=== PATIENT | female | born 1945 | race Caucasian/White ===

== ENCOUNTER 2021-12-11 07:39 | Day surgery (SDC) | payer MEDICARE, SELFPAY ==
[2021-12-11] MEDS: Lidocaine Jelly 2% 20 ML Syringe (URO-JET) 1 APPLIC (08:00)
[2021-12-11 08:01] VITALS: BP 148/77; PULSE 68; RESP 16; TEMP 37; O2SAT 100
== END 2021-12-11 08:30 | disposition home or self-care (01) ==
LOC: EN 07:42 → AC 07:43
PROVIDERS: PCP Family Medicine; Referring Provider Surgery; Visit Provider Surgery
PROC: F00ZJWZ Instrumental Swallowing and Oral Function Assessment using Swallowing Equipment (ICD-10-PCS; CPT 43235; principal; 2021-12-11 07:55)
DX: K21.9 Gastro-esophageal reflux disease without esophagitis (principal)
CPT/HCPCS: 91010

== ENCOUNTER 2022-01-01 10:37 | Day surgery (SDC) | payer MEDICARE, SELFPAY ==
[2022-01-01] VITALS (7 sets, daily range): BP systolic 94–109; BP diastolic 53–62; PULSE 61–64; RESP 16; TEMP 36.9–37.1; O2SAT 94–97; BMI 24.9
[2022-01-01] MEDS: Lactated Ringers 1,000 ML 15 ML IV (11:15)
--- NOTE | 2022-01-01 12:16 | HP.PCM_ITS ---
History and Physical Date of Admission: 01/01/22 HISTORY AND PHYSICAL ? Danita Mcleod 1945 ? REFERRING PHYSICIAN: Chris Falcon,* ? CHIEF COMPLAINT: Consult (EGD) ? HPI: The patient is a 76 year old female referred for endoscopy. Danita notes no history of colon complaints. ? The patient notes the following upper complaints: Danita denies abdominal pain.. Danita notes heartburn. Danita notes dysphagia. Danita notes a history of ulcers/ peptic ulcer disease. ? Danita has undergone prior endoscopy. Patient has undergone an EGD in 2006. She was noted to have some erosive gastritis and the esophagus appeared to be normal at that time. ? The patient is being seen by me today at the request of Dr. Chris Falcon MD for my opinion and advice regarding Esophageal dysphagia Gerd without esophagitis. ? ? PAST MEDICAL HISTORY PAST MEDICAL HISTORY Diagnosis Date ? Acute bronchitis 07/16/2005 ? Acute gastritis without mention of hemorrhage ? ? Anxiety state ? ? Basal cell carcinoma ? ? Broken wrist 09/2008 ? R wrist ? Depression ? ? Esophageal reflux ? ? Osteoarthritis of knees, bilateral ? ? left worse than right, seeing ortho ? Osteopenia ? ? Dr. Rossi-endo ? Vitamin D insufficiency ? ? 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 ? PAST SURGICAL HISTORY PAST SURGICAL HISTORY Procedure Laterality Date ? ARTHRP KNE CONDYLE&PLATU MEDIAL&LAT COMPARTMENTS Left 01/2018 ? CHOLECYSTECTOMY ? ? ? Cholecystectomy ? COLONOSCOPY FLX DX W/COLLJ SPEC WHEN PFRMD ? ? ? Colonoscopy ? COLONOSCOPY FLX DX W/COLLJ SPEC WHEN PFRMD ? 01/31/2011 ? Colonoscopy- [facility] - occult blood positive stool, adhesions ? EGD TRANSORAL BIOPSY SINGLE/MULTIPLE ? 06/11/2006 ? ESOPHAGOGASTRODUODENOSCOPY TRANSORAL DIAGNOSTIC ? 01/31/2011 ? EGD - [facility] - ? HAMMERTOE REVISION, ONE TOE ? ? ? PAST SURGICAL HISTORY OF ? 08/25/2012 ? lateral meniscus repair - [facility] ? PAST SURGICAL HISTORY OF ? 10/2017 ? basal cell carcinoma removal ? TONSILLECTOMY PRIMARY/SECONDARY <AGE 12 ? ? ? Tonsillectomy ? ? ? CURRENT MEDICATIONS Current Outpatient Medications Medication Sig ? citalopram (CELEXA) 20 mg tablet Take 1 tablet by mouth once daily. ? atorvastatin (LIPITOR) 20 mg tablet Take 1 tablet by mouth daily at bedtime. For cholesterol. ? famotidine (PEPCID) 40 mg tablet Take 1 tablet by mouth daily at bedtime. ? famotidine (PEPCID) 40 mg tablet ? ? lansoprazole (PREVACID) 30 mg capsule Take 1 capsule by mouth as needed. ? clobetasol (TEMOVATE) 0.05 % ointment Use 1-2x weekly for maintenance ? Cholecalciferol, Vitamin D3, (VITAMIN D) 1,000 unit cap Take 2,000 Units by mouth twice daily. ? ? No current facility-administered medications for this visit. ? ? ALLERGIES: Seasonal Allergies ? PERSONAL HISTORY: SOCIAL HISTORY Social History ? Tobacco Use ? Smoking status: Former Smoker ? Smokeless tobacco: Never Used ? Tobacco comment: smoked 1 cig per month in college Vaping Use ? Vaping Use: Never used Substance Use Topics ? Alcohol use: Yes ? ? Alcohol/week: 7.0 standard drinks ? ? Types: 7 Glasses of Wine (5oz) per week ? ? Comment: Occasionally (wine) ? Drug use: No ? FAMILY HISTORY: FAMILY HISTORY FAMILY HISTORY Problem Relation Age of Onset ? None Mother ? ? Coronary Artery Disease Father ? ? None Brother ? ? None Brother ? ? Colon Cancer Maternal Grandmother ? ? ? REVIEW OF SYMPTOMS: The review of systems data was entered by the nurse and reviewed by me ? Nursing Notes: Chani Nieves 10/24/2021 2:43 PM Signed REVIEW OF SYSTEMS: General: The patient denies fatigue, denies weight loss, denies weight gain, denies feeling hot, and NOTES feelings of cold. Eyes: The patient denies glaucoma, denies eye injury/surgery, wears glasses or contacts. Ear/Nose/Throat: The patient denies allergies, denies hayfever, denies ear infections, and denies bloody noses. Cardiovascular: The patient denies chest pain, denies heart disease, de nies high blood pressure,denies cardiac stent, denies prior heart attack, denies irregular heart beat, denies high cholesterol, denies poor circulation, denies heart failure, other cardiac issues, denies claudication, denies cold feet, denies peripheral arterial stent. Respiratory: The patient denies tuberculosis, NOTES pneumonia, denies frequent cough, denies pulmonary embolism, denies shortness of breath, and denies coughing up blood. Gastrointestinal: The patient denies difficulty swallowing, NOTES acid reflux, denies ulcers, denies vomiting, denies jaundice/hepatitis, denies g allbladder problems, denies black or tarry stools, denies hemorrhoids, denies bleeding from rectum, denies diverticulitis, denies constipation, denies diarrhea, denies loss of stool control, and denies hernias. Kidney/Bladder: The patient denies kidney stones, denies urine infections, and denies bloody urine. Skin: The patient denies a history of skin cancer, denies bleeding/changing moles, and denies a history of skin rash. Neurologic: The patient denies a history of epilepsy/convulsions, denies headaches, denies head/spinal injuries, and denies stroke/TIA. Psychiatric: The patient denies psychiatric medications, denies depression, and denies voices, denies substance abuse. Endocrine: The patient denies thyroid disorders, denies diabetes, and denies hormonal problems. Hematologic: The patient denies a history of bruising, denies bleeding, and denies anemia, denies blood clots. Infections: The patient denies a history of measles and mumps, denies rheumatic fever, and denies sexually transmitted diseases. Musculoskeletal: The patient denies back pain/injury, denies back problems, denies sciatica, NOTES knee/foot trouble, denies arthritis, or denies gout. ? ? When was patient's last Mammogram screening? 08/2021 ? Last Colonoscopy: 2011 ? Chani Nieves ? PHYSICAL EXAMINATION: ? General: The patient is 76 year old female, well nourished, well hydrated in no acute distress. The patient is oriented to time, place, and person. ? VITALS: Blood pressure 126/69, pulse 71, temperature 36.7 ?C (98.1 ?F), height 151.1 cm (4' 11.5), weight 56.7 kg (125 lb), SpO2 98 %. Body mass index is 24.82 kg/m?. ? HEENT: Normal cephalic, ataumatic, pupils are equally round, sclera are anicteric, mucous membranes are moist, oropharynx is clear. Neck has no masses, asymmetry or lymphadenopathy. Thyroid is unremarkable. ? Respiratory: Clear to auscultation and percussion. Normal respiratory excursion and pattern. ? Cardiac: Examination is regular rate and rhythm. ? Abdominal exam: Soft, nontender, with no palpable masses. No hepatosplenomegaly. No palpable hernias. ? Rectal exam: exam deferred ? Extremities: no clubbing, cyanosis or edema. No adenopathy. ? Other: ? LABORATORY VALUES: As Noted ? RADIOLOGIC STUDIES: As Noted ? Assessment IMPRESSION: Esophageal dysphagia Gerd without esophagitis ? PLAN: I plan to perform upper endoscopy. We discussed the risks and benefits of the planned endoscopy. I have informed the patient that complications can occur including failure to complete the endoscopy and perforation. The patient had the opportunity to ask questions concerning the planned endoscopy. My staff has also explained the procedure to the patient in understandable terms and has given the patient printed material concerning the procedure. The patient freely consents to surgery. ? Diagnoses: (R13.19) Esophageal dysphagia (K21.9) GERD without esophagitis ? ? My findings have been communicated to Dr. Chris Falcon MD via shared medical record. This note will be forwarded to Dr. Chris Falcon MD. Return to Clinic: The patient is instructed to follow-up with me 1 week post operatively. ? Nestor Hathaway III, MD I have re-examined the patient. There are no clinical changes since date of exam.
--- NOTE | 2022-01-01 12:34 | OP.EGD_ITS ---
Patient Name: Danita Mcleod Procedure Date: 01/01/2022 11:28 AM Date of : 1945 Age: 76 Procedure: Upper GI endoscopy Indications: Dysphagia Providers: Nestor Hathaway MD Medicines: See the Anesthesia note for documentation of the administered medications Patient Profile: This is a 76 year old female. Refer to note in patient chart for documentation of history and physical. Complications: No immediate complications. Estimated blood loss: None. Procedure: Pre-Anesthesia Assessment: - Prior to the procedure, a History and Physical was performed, and patient medications and allergies were reviewed. The patient's tolerance of previous anesthesia was also reviewed. The risks and benefits of the procedure and the sedation options and risks were discussed with the patient. All questions were answered, and informed consent was obtained. Prior Anticoagulants: The patient has taken no previous anticoagulant or antiplatelet agents. ASA Grade Assessment: II - A patient with mild systemic disease. After reviewing the risks and benefits, the patient was deemed in satisfactory condition to undergo the procedure. After obtaining informed consent, the endoscope was passed under direct vision. Throughout the procedure, the patient's blood pressure, pulse, and oxygen saturations were monitored continuously. The gastroscope was introduced through the mouth, and advanced to the second part of duodenum. The upper GI endoscopy was accomplished without difficulty. The patient tolerated the procedure well. Scope In: 12:21:57 PM Scope Out: 12:26:32 PM Total Procedure Duration Time 0 hours 4 minutes 35 seconds Findings: A small hiatal hernia was present. The GREENE capsule with delivery system was introduced through the mouth and advanced into the esophagus, such that the GREENE pH capsule was positioned 35 cm from the incisors. The GREENE pH capsule was then deployed and attached to the esophageal mucosa. The delivery system was then withdrawn. Endoscopy was utilized for probe placement and diagnostic evaluation. The scope was reinserted to evaluate placement of the GREENE capsule. Visualization showed the GREENE capsule to be in an appropriate position. The Z-line was regular and was found 35 cm from the incisors. The entire examined stomach was normal. The examined duodenum was normal. Impression: - Small hiatal hernia. - Z-line regular, 35 cm from the incisors. - Normal stomach. - Normal examined duodenum. - The GREENE pH capsule was deployed. - No specimens collected. Recommendation: - Patient has a contact number available for emergencies. The signs and symptoms of potential delayed complications were discussed with the patient. Return to normal activities tomorrow. Written discharge instructions were provided to the patient. - Resume previous diet. - Return to my office in 1 week. - Continue present medications. Procedure Code(s): --- Professional --- 71095, Esophagus, gastroesophageal reflux test; with mucosal attached telemetry pH electrode placement, recording, analysis and interpretation Diagnosis Code(s): --- Professional --- K44.9, Diaphragmatic hernia without obstruction or gangrene R13.10, Dysphagia, unspecified CPT copyright 2017 [employer]. All rights reserved. The codes documented in this report are preliminary and upon agriculture intern review may be revised to meet current compliance requirements. MD Nestor Champion MD 01/01/2022 12:34:25 PM This report has been signed electronically. Number of Addenda: 0 Note Initiated On: 01/01/2022 11:28 AM
--- NOTE | 2022-01-01 12:35 | OP.CCLET_ITS ---
01/01/2022 Cachorro Falcon Re : Upper GI endoscopy procedure for Danita Frias Ezekiel This procedure was performed on Saturday, January 01, 2022. My impressions and recommendations are as follows: Impressions : - Small hiatal hernia. - Z-line regular, 35 cm from the incisors. - Normal stomach. - Normal examined duodenum. - The GREENE pH capsule was deployed. - No specimens collected. Recommendations : - Patient has a contact number available for emergencies. The signs and symptoms of potential delayed complications were discussed with the patient. Return to normal activities tomorrow. Written discharge instructions were provided to the patient. - Resume previous diet. - Return to my office in 1 week. - Continue present medications. My findings are described in the full procedure note, which is enclosed. If I can be of further assistance, please feel free to contact me at Doctor phone number(s): , Work: . Sincerely, MD Nestor Champion MD 01/01/2022 12:34:25 PM This report has been signed electronically.
== END 2022-01-01 13:26 | disposition home or self-care (01) ==
LOC: EN 10:38 → AC 10:40
PROVIDERS: PCP Family Medicine; Referring Provider Family Medicine; Visit Provider Surgery
PROC: 0DJ08ZZ Inspection of Upper Intestinal Tract, Via Natural or Artificial Opening Endoscopic (ICD-10-PCS; CPT 43235; principal; 2022-01-01 11:55)
DX: K44.9 Diaphragmatic hernia without obstruction or gangrene (principal); K21.9 Gastro-esophageal reflux disease without esophagitis; Z79.899 Other long term (current) drug therapy; Z80.0 Family history of malignant neoplasm of digestive organs; F41.9 Anxiety disorder, unspecified; Z87.891 Personal history of nicotine dependence
CPT/HCPCS: 43235; 91035; J7120; J2405

== ENCOUNTER → 2022-02-21 | Outpatient (CLI) | payer MEDICARE, SELFPAY ==
[2022-02-21 10:30] VITALS: BP 119/61; PULSE 61; RESP 16; TEMP 36.2; O2SAT 98; BMI 24.8
[2022-02-21] MEDS: Zoledronic Acid 5 MG 100 ML 300 MG IV (10:40)
[2022-02-21] MEDS: 0.9% NaCl Peripheral Flush Adult/Peds IV (10:48)
[2022-02-21 11:15] VITALS: BP 118/64; PULSE 57; RESP 14; TEMP 36.6; O2SAT 99
== END | disposition home or self-care (01) ==
LOC: MEDOUTP 10:22
PROVIDERS: PCP Family Medicine; Referring Provider Internal Medicine Endocrinology, Diabetes & Metabolism; Visit Provider Internal Medicine Endocrinology, Diabetes & Metabolism
DX: M81.0 Age-related osteoporosis without current pathological fracture (principal)
CPT/HCPCS: 96365; A4216; J3489

== ENCOUNTER → 2023-03-01 | Outpatient (CLI) | payer MEDICARE, SELFPAY ==
[2023-03-01 13:32] LABS: Erythrocyte Sedimentation Rate 5 mm/hr (0-30)
[2023-03-01 13:47] LABS: CRP < 2.90 mg/L (0.0-3.0); Lipase 35 U/L (13-75)
== END | disposition home or self-care (01) ==
LOC: LABSPEC 13:01
PROVIDERS: PCP Family Medicine; Referring Provider Family Medicine; Visit Provider Family Medicine
DX: R10.32 Left lower quadrant pain (principal)
CPT/HCPCS: 83690; 85652; 86140